=== PATIENT | male | born 1975 | race Caucasian/White ===

== ENCOUNTER 2019-11-12 11:59 | Emergency (ER) | payer OTHER, SELFPAY ==
--- NOTE | ~2019-11-12 | XR_ITS ---
XR ankle LT min 3V DATE: 11/12/2019 12:31 INDICATION: Left ankle injury, pain TECHNIQUE: 4 views COMPARISON: None FINDINGS: No fracture or dislocation of the ankle or disruption of the ankle mortise. Slight plantar and posterior calcaneal enthesopathy. IMPRESSION: No fracture or dislocation of ankle Slight calcaneal enthesopathy Reviewed, dictated and finalized at location B.
[2019-11-12 12:19] VITALS: BP 137/89; PULSE 97; RESP 16; TEMP 36.8; O2SAT 100
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
== END 2019-11-12 13:25 | disposition home or self-care (01) ==
PROVIDERS: Emergency Provider Nurse Practitioner
DX: M25.572 Pain in left ankle and joints of left foot (principal)
CPT/HCPCS: 73610; 99203; G0463

== ENCOUNTER 2025-07-07 15:44 | Emergency (ER) | payer OTHER, SELFPAY ==
--- NOTE | ~2025-07-07 | CT_ITS ---
The right CT facial & cervical spine wo HISTORY: COMPARISON: None available. TECHNIQUE: Axial 2.5 mm images of the maxillofacial bones and cervical spine were obtained without contrast. Additional multiplanar reconstruction in the coronal and sagittal planes utilizing bone algorithm were done. Dose optimization technique was utilized. FINDINGS: Facial bones: No acute fracture or dislocation. The visualized paranasal sinuses and mastoid air cells are clear. The soft tissues are unremarkable. The orbits and intraorbital contents are unremarkable. The nasal septum is midline. The mandible is intact. The TMJs are in normal alignment. Cervical spine: There is normal alignment. No fractures. Degenerative changes with disc bulging and uncovertebral hypertrophy from C3-C4 to C6-C7. This causes mild neural foraminal and mild central canal narrowing. The prevertebral soft tissues are normal in appearance. The cerebellar tonsils are above the foramen magnum. The visualized aspect of the upper lungs are clear. IMPRESSION: No acute fracture or dislocation. The orbits and intraorbital contents are unremarkable. There is no evidence of chronic or acute sinusitis. The ostiomeatal complexes and sphenoethmoid recesses are widely patent. The nasal septum is midline Mild degenerative disc disease. All CT scans at this facility are performed using low dose modulation techniques as appropriate to perform exam including the following: automated exposure control; use of iterative reconstruction technique; adjustment of the mA and/or kV according to patient size (this includes techniques or standardized protocols for targeted exams where dose is matched to indication/reason for exam). Reviewed, dictated and finalized at location S. DIAL PROJECT MANAGER IMPRESSION: No acute fracture or dislocation. The orbits and intraorbital contents are unremarkable. There is no evidence of chronic or acute sinusitis. The ostiomeatal complexes and sphenoethmoid recesses are widely patent. The nasal septum is midline Mild degenerative disc disease. All CT scans at this facility are performed using low dose modulation techniqu es as appropriate to perform exam including the following: automated exposure c ontrol; use of iterative reconstruction technique; adjustment of the mA and/or kV according to patient size (this includes techniques or standardized protocol s for targeted exams where dose is matched to indication/reason for exam).
--- NOTE | ~2025-07-07 | CT_ITS ---
CT brain wo con HISTORY:trauma COMPARISON: None. TECHNIQUE: Axial images were obtained of the head without intravenous contrast. FINDINGS: No acute intracranial hemorrhage, mass effect or midline shift. No extra-axial fluid collections. The calvarium is intact. Visualized paranasal sinuses and mastoid air cells are clear. IMPRESSION: No acute intracranial hemorrhage or extra axial fluid collections. All CT scans at this facility are performed using low dose modulation techniques as appropriate to perform exam including the following: automated exposure control; use of iterative reconstruction technique; adjustment of the mA and/or kV according to patient size (this includes techniques or standardized protocols for targeted exams where dose is matched to indication/reason for exam). Reviewed, dictated and finalized at location S. DING SUPERVISOR IMPRESSION: No acute intracranial hemorrhage or extra axial fluid collections. All CT scans at this facility are performed using low dose modulation techniqu es as appropriate to perform exam including the following: automated exposure c ontrol; use of iterative reconstruction technique; adjustment of the mA and/or kV according to patient size (this includes techniques or standardized protocol s for targeted exams where dose is matched to indication/reason for exam).
--- OUTSIDE RECORDS SUMMARY | 2025-07-07 15:46 | XMS_ITS | Clinical Summary ---
Author Organization [facility] Address [address] [place] [id number] Care Team Providers Care Chemical Test Engineer Name Role Phone Andrew Palomo MD Primary Care Provider [phone] Allergies Active Allergy Reactions Criticality Noted Date Comments Penicillins Rash Medium 11/14/2019 Medications No known medications Active Problems Problem Noted Date Diagnosed Date Finger injury, initial encounter 11/14/2019 Medical History Medical History Date Comments Asthma Family History Medical History Relation Name Comments Diabetes Father Arthritis Mother Relation Name Status Comments Father Mother Social History Tobacco Use Types Packs/Day Years Used Date Smoking Tobacco: Never Smokeless Tobacco: Never Alcohol Use Standard Drinks/Week Comments Yes 0 (1 standard drink = 0.6 oz pur e alcohol) social AUDIT-C Answer Date Recorded Q1: How often do you have a drink containing alc ohol? 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 Gender Identity Not on file Sexual Orientation Not on file Last Filed Vital Signs Vital Sign Reading Time Taken Comments Blood Pressure 105/62 11/18/2019 10:06 AM CDT Pulse 72 11/18/2019 10:06 AM CDT Temperature 36.1 C (97 F) 11/18/2019 10:06 AM CDT Respiratory Rate - - Oxygen Saturation 94% 11/18/2019 10: 06 AM CDT Inhaled Oxygen Concentration - - Weight 95.6 kg (210 lb 11.2 oz) 020 10:06 AM CDT Height 180.3 cm (5' 11) 11/18/2019 10: 06 AM CDT Body Mass Index 29.39 11/18/2019 10:06 AM CDT Plan of Treatment Not on file Insurance [facility] Address: [place] [address] [facility] Address: [place] [address] [employer] Care Teams Chemical Test Engineer Relationship Specialty Start Date End Date Andrew Palomo MD [address] [place] [address] PCP - General Family Medicine 11/14/19
--- OUTSIDE RECORDS SUMMARY | 2025-07-07 15:46 | XMS_ITS | Clinical Summary ---
Author Organization [facility] Address [address] [place] [address] Phone [email or web address] Care Team Providers Care Provider Network Mgr Name Role Phone Gm Torregeovani Vincent PRODUCT SAFETY COMPLIANCE LEADER Primary Care Provider [phone] Allergies Active Allergy Reactions Criticality Noted Date Comments Penicillins Rash,Swelling Medium 01/26/2016 Medications albuterol HFA 108 (90 Base) MCG/ACT inhalerIndication s:Mild intermittent asthma without complication Inhale 2 puffs every 6 (six) hours if needed for wheezing. 18 g 05/16/2023 Active Active Problems Problem Noted Date Diagnosed Date Mild intermittent asthma without complication Assessment & Plan (05/16/2023 1:45 PM CDT): Asthma is unchanged. The patient is experiencing monthly daytime asthma symptoms. He is experiencing no nighttime asthma symptoms. Discussed monitoring symptoms and use of quick-relief medications and contacting us early in the course of exacerbations. Warning signs of respiratory distress were reviewed with the patient. Reduce exposure to inhaled allergens: avoid triggers. Counseled to void exposure to cigarette smoke. Wellness examination 05/16/2023 Assessment & Plan (05/16/2023 1:49 PM CDT): Healthy Behavior Recommendations: Evidence suggests an active lifestyle and achieving and maintaining an ideal body weight (20-25 BMI) is optimal for health. Experts recommend at least 30 minutes of moderate to vigorous activity per day as tolerated, 5 days a week. Eat healthy, including plenty of fresh fruits and vegetables daily. Strive to have 2/3 cup of your plate to be vegetables, fruits, whole grains and beans, while 1/3 or less should be an animal product. Choose fish and chicken and limit red meat and processed meats. Limit alcohol intake to two drinks or less per day for a man. Avoid smoking! Practice sun safety: Use a water resistant sunscreen with SPF of at least 30 to protect against UVA and UVB rays to protect against skin cancer. Apply sunscreen every two hours or after swimming or excessive sweating. Consider using physical barriers whenever possible (ex. Hats, shirts with sleeves, avoid direct sun during peak hours). Keep up-to-date on general health screening tests, including cholesterol, blood pressure and glucose (blood sugar) levels. Get an annual influenza vaccine (flu shot). Get vaccinated with the pneumococcal vaccine if > 64 yrs old, which prevents a type of pneumonia, and re-vaccinated as determined by your primary healthcare team. Get vaccinated with the shingles vaccine if > 50 yrs old COVID19 vaccine recommended. Keep up-to-date on dental and eye exams. Medication refill 05/16/2023 Assessment & Plan (05/16/2023 1:49 PM CDT): Meds dispensed. Take as prescribed. Patient was counseled on medication risk, side effects, and possible complications. Patient was counseled on how to properly take the medication and to call with any adverse reactions. Patient stated understanding. Stay active. Watch diet. Follow up prn. Encounter for immunization 06/16/2020 Overview (06/07/2021): Immunizations Immunization Administration Dates Next Due COVID-19 (Pfizer [place] 12 yrs+) (CVX-208) 021,11/11/2020 Influenza (Flucelvax) MDCK, PF, quad (CVX-171) 1 Influenza multi-dose VIAL (A fluria,Fluzone) trivalent (CVX-141) 06/09/2014 Influenza, (Afluria Fluarix Flulaval Fluzone) quad, PF (CVX-150) 05/16/2023,06/10/2018 Tdap (ADACEL BOOSTRIX) (CVX-115) 05/16/2023 Family History Medical History Relation Name Comments Diabetes Father Lupus Mother Relation Name Status Comments Father Mother Social History Tobacco Use Types Packs/Day Years Used Date Smoking Tobacco: Former Cigarettes Q uit: 2002 Smokeless Tobacco: Never Alcohol Use Standard Drinks/Week Comments Yes 0 (1 standard drink = 0.6 oz pur e alcohol) Intimate Partner Violence Answer Date R ecorded Insults You Not on file 06/10/2021 Threatens You Not on file 06/10/2021 Screams at You Not on file 06/10/2021 Physically Hurt Not on file 06/10/2021 Intimate Partner Violence Score Not on file 06/10/2021 Alcohol Use Answer Date Recorded Alcohol Use Status Yes 05/16/2023 Depression Answer Date Recorded PHQ Total Score Not on file 05/18/2024 Stress Answer Date Recorded Stress in your Life Not on file 07/03/2024 Dealing with Stress 3 07/03/2024 Sex and Gender Information Value Date Recorded Sex Assigned at Male 05/08/2023 2:22 PM CDT Legal Sex Male 10:46 AM CDT Gender Identity Male 05/08/2023 2:22 PM CDT Sexual Orientation Not on file Last Filed Vital Signs Vital Sign Reading Time Taken Comments Blood Pressure 126/86 05/16/2023 1:00 PM CDT Pulse 95 05/16/2023 1:00 PM CDT Temperature 36.8 C (98.3 F) 05/16/2023 1:00 PM CDT Respiratory Rate 18 05/16/2023 1:00 PM CDT Oxygen Saturation 96% 05/16/2023 1:00 PM CDT Inhaled Oxygen Concentration - - Weight 95.8 kg (211 lb 3.2 oz) 05/16/2023 1:00 P M CDT Height 180.3 cm (5' 11) 05/16/2023 1:00 PM CDT Body Mass Index 29.46 05/16/2023 1:00 PM CDT Plan of Treatment Health Maintenance Due Date Last Done Comments CT Colonography 1976 DNA Cologuard 1976 FIT or FOBT Test 1976 Sigmoidoscopy 1976 Asthma Spirometry 1981 Dental Cleaning/Exam 04/15/2024 04/15/2023 Annual Preventive Exam 05/16/2024 05/16/2023 Influenza Immunization (#1) 04/27/202504/28, 06/16/2020, 06/10/2018, Additional history exists Tetanus Diphtheria and Pertussis Immunization (2 - Td or Tdap) 05/16/2033 05/16/2023 Colonoscopy 10/11/2033 10/11/2023 Colorectal Cancer Screening Combo 10/11/2033 Covid-19 Immunization Discontinued 12/02/2020, 021 HIB Immunization Aged Out No longer e ligible based on patient's age to complete this topic HIV Screening Discontinued HPV Immunization Aged Out No longer e ligible based on patient's age to complete this topic Hep B Infection Screening - Triple Screen Discontinued Hepatitis A Immunization Aged Out No longer eligible based on patient's age to complete this topic Hepatitis B Immunization Discontinued Hepatitis C Screening Discontinued Pneumococcal Immunization Discontinued Polio Immunization Aged Out No longer eligible based on patient's age to complete this topic Insurance R NO COPAY NB Care Teams Provider Network Mgr Relationship Specialty Start Date End Date Nallely Torre NP [address] [place] [address] PCP - General Family Medicine 05/16/23
--- OUTSIDE RECORDS SUMMARY | 2025-07-07 15:46 | XMS_ITS | Patient Health Record ---
Author Organization [facility] Address [address] [place], [place] [id number] Care Team Providers Care Net Developer With [employer] Name Role Phone EDDIE Marcial Unavailable [phone] Cayetano Palomo Unavailable Unavailable Reason For Referral No Information Social History Social History Additional Details Category Social Info Options Details Migrated Social History Migrated Social History Alcohol intake : , History of tobacco use : , Smoking Status : Never smoked Plan Of Treatment No Information Insurance Providers Payer Name Payer Address Payer Phone Subscriber Number Group Number Insured Name Patient Relationship to Insured Coverage Start Date Coverage End Date [facility] [employer] [address] [place] [id number] YUAN JERONIMO Self - patient is the insured
--- OUTSIDE RECORDS SUMMARY | 2025-07-07 15:46 | XMS_ITS | Clinical Summary ---
Author Organization [facility] Address [address] [place] [address] Care Team Providers Care Lunchroom Attendant Name Role Phone Nallely Torre DIRECTOR GEOPHYSICAL LABORATORY Primary Care Provider [phone] Allergies Active Allergy Reactions Criticality Noted Date Comments Penicillins Rash Low 09/24/2023 Medications albuterol sulfate HFA 108 (90 Base) MCG/ACT inhaler Inhale 2 puffs into the lungs every 6 (six) hours as needed for Wheezing. Active Active Problems No known active problems Social History Tobacco Use Types Packs/Day Years Used Date Smoking Tobacco: Never Smokeless Tobacco: Never Tobacco Cessation:Counseling Given: Not Answered Alcohol Use Standard Drinks/Week Comments Yes 0 (1 standard drink = 0.6 oz pur e alcohol) 10 week Sex and Gender Information Value Date Recorded Sex Assigned at Not on file Legal Sex Male 2:40 PM CDT Gender Identity Not on file Sexual Orientation Not on file Last Filed Vital Signs Vital Sign Reading Time Taken Comments Blood Pressure 130/67 10/08/2023 1:20 PM CULINARY ASSISTANT Pulse 87 10/08/2023 1:02 PM CULINARY ASSISTANT Temperature 36.3 C (97.4 F) 10/08/2023 12:57 PM CULINARY ASSISTANT Respiratory Rate 16 10/08/2023 12:57 PM CULINARY ASSISTANT Oxygen Saturation 97% 10/08/2023 1:20 PM CULINARY ASSISTANT Inhaled Oxygen Concentration - - Weight 91.6 kg (202 lb) 10/04/2023 9:52 AM CULINARY ASSISTANT Height 180.3 cm (5' 11) 10/04/2023 9:52 AM CULINARY ASSISTANT Body Mass Index 28.17 10/04/2023 9:52 AM CULINARY ASSISTANT Plan of Treatment Health Maintenance Due Date Last Done Comments Annual Physical 1979 Hepatitis C 1994 Hepatitis B Vaccines (1 of 3 - 19+ 3-dose series) 1995 COVID-19 Vaccine (3 - season) 2025 12/02/2020, 11/11/2020 Influenza Adult (#1) 2025 05/16/2023, 06/16/2020, 06/10/2018, Additional history exists DTaP, Tdap and Td Vaccines (2 - Td or Tdap) 05/16/2033 05/16/2023 Colorectal Cancer Screening Colonoscopy (10 Years) 10/08/2033 10/08/2023, 10/08/2023 Hepatitis A Vaccines Aged Out No long er eligible based on patient's age to complete this topic Meningococcal B Vaccine Aged Out No l onger eligible based on patient's age to complete this topic Meningococcal Vaccine Aged Out No tara sirisha eligible based on patient's age to complete this topic Pneumococcal Vaccine: Pediatrics (0 to 5 Years) and At-Risk Patients (6 to 49 Years) Aged Out No longer eligible based on patient's age to complete this topic RSV Immunizations Under 20 Months Aged Out No longer eligible based on patient's age to complete this topic Procedures Procedure Name Priority Date/Time Associated Diagnosis Comments COLONOSCOPY Routine 10/08/2023 10:09 AM CULINARY ASSISTANT from Last 3 Months or Most Recently Relevant to Health Maintenance Care Teams Lunchroom Attendant Relationship Specialty Start Date End Date Nallely Torre FNP [address] [place] [address] PCP - General NURSE PRACTITIONER 09/24/23
[2025-07-07 15:48] VITALS: BP 146/87; PULSE 87; RESP 17; O2SAT 100
--- NOTE | 2025-07-07 16:03 | ED_ITS ---
HPI - General Adult General Chief complaint: Head Injury Stated complaint: head injury Time Seen by Provider: 07/07/25 15:47 History of Present Illness HPI narrative: 50-year-old male presenting to emergency department for evaluation for a head injury. Patient was at home trimming trees when a branch struck the ground and then bounced back and struck him in the left face. Patient states it did knock him to the ground but patient denies any loss of consciousness. Patient is not on any blood thinners. Patient does have a significant hematoma to the left forehead and abrasion to the left lateral face. 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 HEAD: normocephalic, left forehead hematoma. EYES: PERRLA/EOMI, conjunctivae clear. NOSE: Normal no drainage EARS:TMS clear with good light reflex. THROAT: Pharynx clear, no exudate. NECK: Supple. No adenopathy, no masses. RESPIRATORY: Airway patent, respirations nonlabored. Clear to auscultation bilaterally, no rales, rhonchi, wheezing. CARDIOVASCULAR: Regular rate and rhythm without murmurs rubs or gallops. ABDOMINAL: Soft, nontender, nondistended, normal bowel sounds MUSCULOSKELETAL: Moves all extremities. Strength/ROM intact, No edema, No calf tenderness. NEURO: Alert. Cranial nerves II through XII intact. Good gait. Good coordination SKIN: Abrasion to forehead and left face Course Vital Signs Vital signs: Vital Signs Pulse Rate 87 07/07/25 15:48 Respiratory Rate 17 07/07/25 15:48 Blood Pressure 146/87 H 07/07/25 15:48 Pulse Oximetry 100 07/07/25 15:48 Oxygen Delivery Room Air 07/07/25 15:48 Pulse Rate 94 07/07/25 16:55 Respiratory Rate 15 07/07/25 16:55 Blood Pressure 135/90 07/07/25 16:55 Pulse Oximetry 100 07/07/25 16:55 Oxygen Delivery Room Air 07/07/25 15:48 Medical Decision Making MDM Narrative Medical decision making narrative: 50-year-old male present to the emergency department for evaluation after having a head injury. Patient does have a frontal hematoma and facial abrasions. Head CT, facial CT and cervical spine CT were negative. Patient was updated on wound care. Patient was also educated on reasons to return to the emergency department. All questions and concerns were addressed. Differential Diagnosis Differential Diagnosis: Subdural hematoma, subarachnoid hemorrhage Vital Signs Vital Signs: Vital Signs Pulse Rate 87 07/07/25 15:48 Respiratory Rate 17 07/07/25 15:48 Blood Pressure 146/87 H 07/07/25 15:48 Pulse Oximetry 100 07/07/25 15:48 Oxygen Delivery Room Air 07/07/25 15:48 Pulse Rate 94 07/07/25 16:55 Respiratory Rate 15 07/07/25 16:55 Blood Pressure 135/90 07/07/25 16:55 Pulse Oximetry 100 07/07/25 16:55 Oxygen Delivery Room Air 07/07/25 15:48 Imaging Data Radiologist's impression: Impressions Head CT 07/07/25 16:16 IMPRESSION: No acute intracranial hemorrhage or extra axial fluid collections. All CT scans at this facility are performed using low dose modulation kalyani hniques as appropriate to perform exam including the following: automated exposure control; use of iterative reconstruction technique; adjustment of the mA and/or kV according to patient size (this includes techniques or standardized protocols for targeted exams where dose is matched to indication/reason for exam). Head/Cervical Spine/Facial Bones CT 07/07/25 16:22 IMPRESSION: No acute fracture or dislocation. The orbits and intraorbital contents are unremarkable. There is no evidence of chronic or acute sinusitis. The ostiomeatal complexes and sphenoethmoid recesses are widely patent. The nasal septum is midline Mild degenerative disc disease. All CT scans at this facility are performed using low dose modulation techniques as appropriate to perform exam including the following: automated exposure control; use of iterative reconstruction technique; adjustment of the mA and/or kV according to patient size (this includes techniques or standardized protocols for targeted exams where dose is matched to indication/reason for exam). Discharge Plan Discharge Clinical Impression: Closed head injury, Contusion of face Patient Disposition: Home Condition: Stable Instructions: Antibiotic Form, Head Injury (ED) Additional Instructions: Tylenol and ibuprofen for pain control. Flexeril as needed for muscle spasm. Have close follow-up with your primary care physician. If you have any worsening symptoms please call or return to the emergency department. Patient Language: Serbian Prescriptions: New cyclobenzaprine 10 mg tablet 10 mg PO BID PRN (Reason: muscle spasm) Qty: 14 0RF No Action erythromycin 5 mg/gram (0.5 %) ointment 0.5 inch EACH EYE TID Qty: 3.5 0RF albuterol sulfate 90 mcg/actuation HFA aerosol inhaler 2 inh inhalation Q4H PRN (Reason: shortness of breath or wheezing) Qty: 8.5 1RF Follow-up/Referrals: Jaqui Cornejo DO [Primary Care Provider, Family Practice]
--- OUTSIDE RECORDS SUMMARY | 2025-07-07 16:14 | XMS_ITS | Clinical Summary ---
Author Organization [facility] Address [address] [place] [address] Phone [email or web address] Care Team Providers Care Fitness Services Manager Name Role Phone Gm Torregeovani Vincent PAPER MACHINE BACKTENDER Primary Care Provider [phone] Allergies Active Allergy Reactions Criticality Noted Date [...] Immunization Administration Dates Next Due COVID-19 (Pfizer [place] 12 yrs+) (CVX-208) 021,11/11/2020 Influenza (Flucelvax) MDCK, [...] Insurance R NO COPAY NB Care Teams Fitness Services Manager Relationship Specialty Start Date End Date Nallely Torre NP [address] [place] [address] PCP - General Family Medicine 05/16/23
--- OUTSIDE RECORDS SUMMARY | 2025-07-07 16:14 | XMS_ITS ---
Author Organization Unknown ENCOUNTERS Encounter Performer Location Date Diagnosis Diagnosis Status Pre Admit [place] [id number] [place] [address] [id number] Emergency [facility] [address] [place] [address] [id number] *Note: Encounters from your own facility or health system may be excluded. Allergies, Adverse Reactions, Alerts Allergen Type Severity Identification Date Penicillins drug allergy 2 [id number] Medications Name Date Quantity Days Supplied GPI Number
--- OUTSIDE RECORDS SUMMARY | 2025-07-07 16:14 | XMS_ITS | Clinical Summary ---
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 Primary Care Provider [phone] Allergies Active Allergy Reactions Criticality Noted Date [...] Comments Blood Pressure 130/67 10/08/2023 1:20 PM STAFF EDITOR Pulse 87 10/08/2023 1:02 PM STAFF EDITOR Temperature 36.3 C (97.4 F) 10/08/2023 12:57 PM STAFF EDITOR Respiratory Rate 16 10/08/2023 12:57 PM STAFF EDITOR Oxygen Saturation 97% 10/08/2023 1:20 PM STAFF EDITOR Inhaled Oxygen Concentration - - Weight 91.6 kg (202 lb) 10/04/2023 9:52 AM STAFF EDITOR Height 180.3 cm (5' 11) 10/04/2023 9:52 AM STAFF EDITOR Body Mass Index 28.17 10/04/2023 9:52 AM STAFF EDITOR Plan of Treatment Health Maintenance Due Date [...] Diagnosis Comments COLONOSCOPY Routine 10/08/2023 10:09 AM STAFF EDITOR from Last 3 Months or Most Recently Relevant to Health Maintenance Care Teams Quality Director Relationship Specialty Start Date End Date Nallely Torre FNP [address] [place] [address] PCP - General NURSE PRACTITIONER 09/24/23
--- OUTSIDE RECORDS SUMMARY | 2025-07-07 16:14 | XMS_ITS | Clinical Summary ---
Author Organization 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
[2025-07-07 16:55] VITALS: BP 135/90; PULSE 94; RESP 15; O2SAT 100
== END 2025-07-07 16:56 | disposition home or self-care (01) ==
PROVIDERS: Emergency Provider Emergency Medicine; PCP Family Medicine
DX: S00.83XA Contusion of other part of head, initial encounter (principal); W20.8XXA Other cause of strike by thrown, projected or falling object, initial encounter; Y93.H2 Activity, gardening and landscaping
CPT/HCPCS: 70450; 70486; 72125; 99284